=== PATIENT | female | born 1935 | race Caucasian/White ===

== ENCOUNTER 2017-07-01 15:34 | Inpatient (IN) | payer MEDICARE, MEDICAID ==
[~2017-07-01] VITALS: Ht 152.4 cm; Wt 45.4 kg
[2017-07-01] MEDS ORDERED: OMEP20CA10 PO (15:42)
[2017-07-01] MEDS ORDERED: METF500T4 PO (15:42)
[2017-07-01] MEDS ORDERED: ASPI-1159 PO (15:42)
[2017-07-01] MEDS ORDERED: MORPHINE SULFATE 4 MG/ML CPJ (NOT FOR IM USE) IV STA (15:48)
[2017-07-01] MEDS ORDERED: SODIUM CHLORIDE 0.9% 1,000 ML IV ONE (15:48)
[2017-07-01] MEDS ORDERED: KETOROLAC 30MG/ML VIAL IV STA (15:48)
[2017-07-01] MEDS ORDERED: PANTOPRAZOLE SODIUM 40 MG/VIAL IV ONE (16:00)
[2017-07-01] MEDS ORDERED: ONDANSETRON HCL 4MG/2ML VIAL IV ONE (16:15)
[2017-07-01 16:28] LABS: BASOPHILS % 0.3 % (0.0-2.0); EOSINOPHILS % 0.3 % (0.0-5.0); HEMATOCRIT. 29.8 % (36.0-48.0); HEMOGLOBIN. 9.4 g/dL (12.0-16.0); LYMPHOCYTES % 32.1 % (20.0-50.0); MEAN CORPUSCULAR HEMOGLOBIN 29.5 pg (28.0-32.0); MEAN CORPUSCULAR VOLUME 93.8 fL (81.0-99.0); MEAN PLATELET VOLUME 12.8 fl (7.4-10.4); MONOCYTES % 5.2 % (2.0-8.0); NEUTROPHILS % 62.1 % (40.0-76.0); PLATELET 135 x1000/uL (130-400); RED BLOOD CELL COUNT 3.18 mill/uL (4.2-5.4); RED CELL DISTRIBUTION WIDTH 13.6 % (11.6-14.6)
[2017-07-01 16:30] LABS: CHLORIDE 106 mEq/L (98-107)
[2017-07-01 16:31] LABS: INR 1.1; PROTHROMBIN TIME 11.8 sec (9.4-11.6)
[2017-07-01 16:38] LABS: CARBON DIOXIDE 20 mEq/L (21-32)
[2017-07-01] MEDS ORDERED: MORPHINE SULFATE 4 MG/ML CPJ (NOT FOR IM USE) IV ONE (18:15)
[2017-07-01] MEDS ORDERED: SODIUM CHLORIDE 0.9% 1,000 ML IV SCH (18:48)
[2017-07-01 22:00] VITALS: BP 178/47
[2017-07-01 22:34] VITALS: BP 178/49
[2017-07-01] MEDS ORDERED: LISI-604 PO (23:02)
[2017-07-01] MEDS ORDERED: MELO-106 PO (23:07)
[2017-07-01] MEDS ORDERED: NAPR-681 PO (23:07)
[2017-07-01] MEDS ORDERED: PHEN100C12 PO (23:07)
[2017-07-01] MEDS ORDERED: ENOXAPARIN 40MG/0.4ML SYR SUBCUT SCH (23:30)
[2017-07-01] MEDS ORDERED: LORAZEPAM 2MG/ML CPJ IV PRN (23:30)
[2017-07-01] MEDS ORDERED: HYDROCODONE/ACETAMINOPHEN 5/325MG TABLET PO PRN (23:30)
[2017-07-02] VITALS: BP_SYST 165
[2017-07-02] MEDS: ONDANSETRON HCL 4MG/2ML VIAL IV PRN ×3 (01:06→15:45)
[2017-07-02] MEDS: SODIUM CHLORIDE 0.45% 1,000 ML IV SCH ×2 (01:07→21:09)
[2017-07-02] MEDS ORDERED: LEVOFLOXACIN 500MG PREMIX 100 ML IV NR (02:00)
[2017-07-02 03:38] LABS: CLARITY URINE CLOUDY (CLEAR); COLOR URINE YELLOW (YELLOW); GLUCOSE URINE NEGATIVE (NEGATIVE); KETONES URINE NEGATIVE (NEGATIVE); LEUKOCYTE ESTERASE URINE 1+ (NEGATIVE); NITRITE URINE NEGATIVE (NEGATIVE); OCCULT BLOOD URINE TRACE (NEGATIVE); PROTEIN URINE TRACE (NEGATIVE); UROBILINOGEN URINE 0.2 E.U./dL (0.2-1.0)
[2017-07-02 04:00] VITALS: BP 143/61
[2017-07-02 08:27] VITALS: BP 170/62
[2017-07-02] MEDS ORDERED: FOLIC ACID 1MG TABLET PO SCH (09:00)
[2017-07-02] MEDS ORDERED: PANTOPRAZOLE SODIUM 40 MG/VIAL IV SCH (09:00)
[2017-07-02] MEDS: MORPHINE SULFATE 4 MG/ML CPJ (NOT FOR IM USE) IV PRN ×2 (11:39→15:45)
[2017-07-02 12:00] VITALS: BP 154/67
[2017-07-02] MEDS ORDERED: HYDRALAZINE 20MG/ML VIAL IV PRN (13:30)
[2017-07-02] MEDS ORDERED: SODIUM BICARBONATE 7.5% 0.9 MEQ/ML 50ML SYR IV ONE (14:24)
[2017-07-02] MEDS ORDERED: EPINEPHRINE 0.1MG/ML (1:10,000) 10ML SYR ONE (14:24)
[2017-07-02 16:04] VITALS: BP 150/48
[2017-07-02 20:00] VITALS: BP 98/24
[2017-07-03] MEDS ORDERED: DEXTROSE 50% WATER 50ML SYRINGE IV ONE (01:01)
[2017-07-03] MEDS ORDERED: NOREPINEPHRINE 4 MG in DEXT 5% WATER 246 ML IV PRN (01:15)
[2017-07-03] MEDS ORDERED: LEVOFLOXACIN 250MG PREMIX 50 ML IV SCH (09:00)
== END 2017-07-03 05:42 | disposition expired | DRG 393 ==
LOC: ER 15:49 → 5WST 18:49 → ENRESERV 20:17 → 5WST 22:57
PROVIDERS: ADMIT Internal Medicine Nephrology; ATTEND Internal Medicine Nephrology
DX: K46.0 Unspecified abdominal hernia with obstruction, without gangrene (principal); E43 Unspecified severe protein-calorie malnutrition; N39.0 Urinary tract infection, site not specified; E11.9 Type 2 diabetes mellitus without complications; D64.9 Anemia, unspecified; K85.90 Acute pancreatitis without necrosis or infection, unspecified; I10 Essential (primary) hypertension; Z68.1 Body mass index [BMI] 19.9 or less, adult; I46.9 Cardiac arrest, cause unspecified; G40.909 Epilepsy, unspecified, not intractable, without status epilepticus; J45.909 Unspecified asthma, uncomplicated; K21.9 Gastro-esophageal reflux disease without esophagitis; N28.9 Disorder of kidney and ureter, unspecified; Z79.82 Long term (current) use of aspirin; Z79.84 Long term (current) use of oral hypoglycemic drugs; Z79.899 Other long term (current) drug therapy; R19.02 Left upper quadrant abdominal swelling, mass and lump
CPT/HCPCS: 36415; 74176; 80053; 81001; 82962; 83690; 85025; 85610; 86850; 86900; 92950; 93005; 96361; 96374; 96375; 96376; 99291; C9113; J0171; J1885; J1956; J2270; J2405; J3490; J7030